=== PATIENT | female | born 1990 | race Caucasian/White ===

== ENCOUNTER 2018-09-12 09:01 | Day surgery (SDC) | payer MEDICAID ==
[~2018-09-12] VITALS: Ht 160 cm; Wt 104.3 kg
[2018-09-12] MEDS ORDERED: LIDOCAINE HCL 1% 20ML VIAL (Pyxis) INJ ONE (09:58)
[2018-09-12 22:42] LABS: GLUCOSE CSF 54 mg/dL (41-75)
[2018-09-22 07:13] LABS: MYELIN BASIC PROTEIN CSF 1.7 ng/mL (0.0-1.2)
== END 2018-09-12 14:45 | disposition home or self-care (01) ==
LOC: RADANGIO 09:01
PROVIDERS: ATTEND Psychiatry & Neurology Neurology
DX: R26.89 Other abnormalities of gait and mobility (principal); R51 Headache
CPT/HCPCS: 62270; 77003; 82040; 82042; 82784; 82945; 83873; 83916; 84157; 89050; J3490

== ENCOUNTER → 2020-08-21 | Outpatient (CLI) | payer MEDICAID ==
[~2020-08-21] MED LIST: ASPI-964 PO; IBUP-2029 PO
== END | disposition home or self-care (01) ==
LOC: LAB 09:31
PROVIDERS: ATTEND Specialist
DX: Z01.812 Encounter for preprocedural laboratory examination (principal); Z20.828 Contact with and (suspected) exposure to other viral communicable diseases
CPT/HCPCS: C9803; U0003

== ENCOUNTER → 2020-08-25 | Day surgery (SDC) | payer MEDICAID ==
[~2020-08-25] VITALS: Ht 160 cm; Wt 104.3 kg
[~2020-08-25] MED LIST changes: +BACITRACIN 50,000 UNITS/VIAL ONE; +BUPIVACAINE HCL/PF 0.5% (5MG/ML) 10ML ONE; +CEFAZOLIN SODIUM 1000MG/VIAL ONE; +DIPHENHYDRAMINE 50MG/ML VIAL IV PRN; +FENTANYL CITRATE/PF 50MCG/ML 2ML VIAL ONE; +GLYCOPYRROLATE 0.2 MG/ML 2ML VIAL ONE; +HYDROMORPHONE HCL/PF 2MG/ML CPJ IV PRN; +INDOCYANINE GREEN 25 MG VIAL IV ONE; +KETOROLAC 30MG/ML VIAL IV NR; +KETOROLAC 30MG/ML VIAL IV ONE; +LACTATED RINGERS 1,000 ML IV SCH; +LIDOCAINE HCL 1% 20ML VIAL (Pyxis) INJ ONE; +LIDOCAINE HCL 2% JELLY 5ML ONE; +MEPERIDINE HCL/PF 25MG/ML CPJ IV PRN; +METOCLOPRAMIDE HCL 10MG/2ML VIAL IV NR; +METOCLOPRAMIDE HCL 10MG/2ML VIAL IV ONE; +METOCLOPRAMIDE HCL 10MG/2ML VIAL ONE; +MIDAZOLAM HCL 2 MG/2 ML VIAL ONE; +ONDANSETRON HCL 4MG/2ML INJ IV PRN; +ONDANSETRON HCL 4MG/2ML INJ ONE; +PROPOFOL 200MG/20ML VIAL IV ONE; +ROCURONIUM BROMIDE 10MG/ML VIAL 5ML IV ONE; +SKIN ADHESIVE 0.7 GM EA TOP ONE
[2020-08-25 09:03] LABS: UCG SCREEN NEGATIVE
[2020-08-25 16:53] VITALS: BP 112/60
== END | disposition home or self-care (01) ==
LOC: OR 08:18
PROVIDERS: ATTEND Specialist
DX: K80.10 Calculus of gallbladder with chronic cholecystitis without obstruction (principal); Z79.899 Other long term (current) drug therapy; Z98.890 Other specified postprocedural states
CPT/HCPCS: 47562; 81025; 88304; J0690; J1170; J1885; J2250; J2405; J2704; J2765; J3010; J3490; Q9957; S2900